=== PATIENT | female | born 1965 | race Caucasian/White ===

== ENCOUNTER 2020-11-12 01:36 | Outpatient (CLI) | payer SELFPAY | END 2020-11-12 01:37 | disposition EMS.NT | LOC: EDBD → EMS 01:36 | PROVIDERS: ATTEND Surgery | DX: R44.9 Unspecified symptoms and signs involving general sensations and perceptions (principal) ==

== ENCOUNTER 2020-11-12 14:14 | Outpatient (CLI) | payer SELFPAY | END 2020-11-12 14:15 | disposition EMS.NT | LOC: EDBD → EMS 14:14 | PROVIDERS: ATTEND Surgery | DX: F41.9 Anxiety disorder, unspecified (principal) ==

== ENCOUNTER 2020-11-14 | Outpatient (CLI) | payer MEDICAID | END 2020-11-14 07:54 | disposition EMS.NT | DX: F41.9 Anxiety disorder, unspecified (principal) ==

== ENCOUNTER 2020-11-17 12:25 | Outpatient (CLI) | payer MEDICAID | END 2020-11-17 12:26 | disposition short-term general hospital (02) | LOC: EMS 12:25 | PROVIDERS: ATTEND Surgery | DX: F41.9 Anxiety disorder, unspecified (principal); R44.1 Visual hallucinations | CPT/HCPCS: A0425; A0429; A0999 ==

== ENCOUNTER 2022-07-13 11:10 | Outpatient (CLI) | payer MEDICAID | END 2022-07-13 23:59 | disposition EMS.NT | LOC: EMS 11:10 | DX: F41.9 Anxiety disorder, unspecified (principal) ==

== ENCOUNTER 2022-07-14 04:16 | Outpatient (CLI) | payer MEDICAID | END 2022-07-14 23:59 | disposition short-term general hospital (02) | LOC: EMS 04:16 | DX: F22 Delusional disorders (principal) | CPT/HCPCS: A0425; A0429; A0999 ==

== ENCOUNTER 2023-01-31 09:53 | Outpatient (CLI) | payer MEDICAID | END 2023-01-31 09:54 | disposition critical access hospital (66) | LOC: EMS 09:53 | DX: R14.0 Abdominal distension (gaseous) (principal); R41.82 Altered mental status, unspecified | CPT/HCPCS: A0425; A0429 ==

== ENCOUNTER 2023-02-10 13:01 | Outpatient (CLI) | payer MEDICAID | END 2023-02-10 23:59 | disposition short-term general hospital (02) | LOC: EMS 13:01 | DX: F41.9 Anxiety disorder, unspecified (principal) | CPT/HCPCS: A0425; A0429; A0999 ==

== ENCOUNTER 2023-04-21 10:10 | Outpatient (CLI) | payer MEDICAID | END 2023-04-21 10:11 | disposition EMS.NT | LOC: EMS 10:10 | DX: R45.1 Restlessness and agitation (principal) ==